=== PATIENT | male | born 1975 | race Caucasian/White ===

== ENCOUNTER 2016-12-15 02:09 | Emergency (ER) | payer OTHER ==
[~2016-12-15] VITALS: Ht 188 cm; Wt 95.3 kg
[~2016-12-15 02:09] MED LIST: CEPH250C PO; SULF1TAB24 PO
[2016-12-15 02:15] VITALS: BP 147/90
[2016-12-15] MEDS ORDERED: CEPH-264 PO (02:35)
[2016-12-15] MEDS ORDERED: SULF1TAB24 PO (02:35)
[2016-12-15] MEDS ORDERED: HYDR25TA PO (02:35)
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
== END 2016-12-15 02:40 | disposition home or self-care (01) ==
LOC: ER 02:09
DX: L03.113 Cellulitis of right upper limb (principal); Z88.6 Allergy status to analgesic agent
CPT/HCPCS: 99283

== ENCOUNTER 2017-08-06 16:22 | Emergency (ER) | payer MEDICARE, OTHER ==
[~2017-08-06] VITALS: Ht 188 cm; Wt 99.8 kg
[~2017-08-06 16:22] MED LIST changes: +CEPH-264 PO; +HYDR25TA PO
[2017-08-06 16:42] VITALS: BP 131/79
--- NOTE | 2017-08-06 17:05 | RAD ---
Left wrist 3 views. History: Pain, fall 3 views were taken of the left wrist. There is no acute fracture. There is slight increased space between the lunate and navicular, a scapholunate ligament injury would be possible. There are small cysts in the lunate. Impression: 1. Possible scapholunate ligament injury. 2. No acute fracture.
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
== END 2017-08-06 18:05 | disposition home or self-care (01) ==
LOC: ER 16:22
DX: S69.92XA Unspecified injury of left wrist, hand and finger(s), initial encounter (principal); G81.94 Hemiplegia, unspecified affecting left nondominant side; F43.10 Post-traumatic stress disorder, unspecified; Z88.6 Allergy status to analgesic agent; W18.39XA Other fall on same level, initial encounter; Y93.89 Activity, other specified; Y92.89 Other specified places as the place of occurrence of the external cause; Y99.8 Other external cause status
CPT/HCPCS: 29125; 73110; 99284-25

== ENCOUNTER 2017-08-07 10:06 | Emergency (ER) | payer MEDICARE, OTHER ==
[2017-08-07 10:14] VITALS: BP 138/82
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
== END 2017-08-07 10:53 | disposition home or self-care (01) ==
LOC: ER 10:06
DX: S69.82XD Other specified injuries of left wrist, hand and finger(s), subsequent encounter (principal); X58.XXXD Exposure to other specified factors, subsequent encounter; F43.10 Post-traumatic stress disorder, unspecified; Z98.890 Other specified postprocedural states; Z88.6 Allergy status to analgesic agent
CPT/HCPCS: 29125; 99283-25

== ENCOUNTER 2019-09-18 14:51 | Emergency (ER) | payer MEDICAID, MEDICARE, OTHER ==
[~2019-09-18] VITALS: Ht 188 cm; Wt 97.0 kg
[2019-09-18 15:40] VITALS: BP 164/104
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
[2019-09-18] MEDS ORDERED: DIPHTH,PERTUSS(ACELL),TET TOX 0.5 ML DISP.SYRIN. VAX IM ONE (16:00)
[2019-09-18] MEDS ORDERED: SULF1TAB24 PO (16:01)
== END 2019-09-18 16:00 | disposition home or self-care (01) ==
LOC: ER 14:51
DX: S61.551A Open bite of right wrist, initial encounter (principal); L03.113 Cellulitis of right upper limb; Z88.6 Allergy status to analgesic agent; W57.XXXA Bitten or stung by nonvenomous insect and other nonvenomous arthropods, initial encounter; Y93.89 Activity, other specified; Y92.89 Other specified places as the place of occurrence of the external cause; Y99.8 Other external cause status
CPT/HCPCS: 90471; 90715; 99283